=== PATIENT | female | born 1960 | race American Indian/Alaskan Native ===

== ENCOUNTER 2017-07-23 19:12 | Emergency (ER) | payer OTHER ==
[2017-07-23] MEDS ORDERED: TYLENOL PO ONE (22:38)
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
[2017-07-23 23:09] VITALS: BP 164/82
== END 2017-07-23 23:14 | disposition home or self-care (01) ==
LOC: ED 19:12
DX: R51 Headache (principal); I10 Essential (primary) hypertension; E11.9 Type 2 diabetes mellitus without complications; F17.200 Nicotine dependence, unspecified, uncomplicated; Z88.6 Allergy status to analgesic agent; Z88.5 Allergy status to narcotic agent; V79.59XA Passenger on bus injured in collision with other motor vehicles in traffic accident, initial encounter; Y93.89 Activity, other specified; Y92.89 Other specified places as the place of occurrence of the external cause; Y99.8 Other external cause status
CPT/HCPCS: 99283

== ENCOUNTER 2021-02-26 11:57 | Outpatient (CLI) | payer OTHER ==
--- NOTE | 2021-02-26 14:09 | XRay Report ---
RIGHT SHOULDER HISTORY: Pain. COMPARISON: None. TECHNIQUE: 3 views of the right shoulder were obtained. FINDINGS: Bones: No fracture or dislocation. Joint spaces: Maintained. Soft tissues: No significant abnormality. Additional findings: Faint linear densities in the right lower lung are partially visualized. IMPRESSION: Right shoulder without evidence of acute osseous injury or significant degenerative change. Faint linear densities in the right lower lung, possibly atelectasis versus scarring. Recommend chest radiograph for further evaluation. Signer Name: Orlando Fajardo MD Signed: 02/26/2021 2:04 PM Workstation Name: [id number]
--- NOTE | 2021-02-26 14:14 | XRay Report ---
LUMBAR SPINE HISTORY: Back pain. COMPARISON: None. TECHNIQUE: 3 view(s) of the lumbar spine obtained. FINDINGS: Vertebrae: No evidence of acute vertebral body fracture or subluxation. Disc Spaces:Mild degenerative change primarily at L4/L5. Facet Joints:No significant abnormality. Prevertebral Soft Tissues:No significant abnormality. Additional findings: There is slight levoconvex curvature of the lumbar spine. Postsurgical changes i n the right abdomen. IMPRESSION: Lumbar spine without evidence of acute osseous injury. Mild degenerative disc change at L4/L5. Slight levoconvex curvature of the lumbar spine. Signer Name: Orlando Fajardo MD Signed: 02/26/2021 2:09 PM Workstation Name: [id number]
== END 2021-02-26 11:58 | disposition home or self-care (01) ==
LOC: XRAY 11:57
PROVIDERS: ATTEND Internal Medicine
DX: M47.816 Spondylosis without myelopathy or radiculopathy, lumbar region (principal); M25.511 Pain in right shoulder
CPT/HCPCS: 72100